=== PATIENT | female | born 1935 | race Caucasian/White ===

== ENCOUNTER 2018-04-20 10:09 | Day surgery (SDC) | payer MEDICARE, OTHER ==
[~2018-04-20] VITALS: Ht 162.6 cm; Wt 58.6 kg
--- NOTE | ~2018-04-20 | OP ---
PATIENT NAME: BARRINGTON GONZALEZ MEDICAL RECORD: [id number] :36 LOCATION:[facility] ADMISSION DATE: SURGEON: MOIZ MAI MD DATE OF OPERATION: 04/20/2018 PREOPERATIVE DIAGNOSIS: Open dislocation, left small finger PIP joint. POSTOPERATIVE DIAGNOSIS: Open dislocation, left small finger PIP joint. PROCEDURES: 1. Closed reduction with percutaneous pinning of the left PIP joint. 2. Irrigation and debridement of the open wound. SURGEON: Moiz Mai MD ANESTHESIA: General. INTRAOPERATIVE COMPLICATIONS: None. SUMMARY OF PATHOLOGIC FINDINGS: The patient did have a substantially decreased capillary refill consistent with the preoperative radiographs. The patient had a dislocation of the PIP joint. I did not see any evidence of fracture on these radiographs or on radiographs taken under fluoroscopy in the OR. INDICATIONS: This is an 82-year-old female, who fell and sustained the injury this morning and presented to the Emergency Department for further intervention. OPERATIVE SUMMARY IN DETAIL: After obtaining the appropriate preoperative orthopedic surgery consent as well as anesthetic consultation, evaluation and clearance, the patient was brought to the operating room and placed on the operating table in supine position. After adequate general TIVA anesthesia was administered, the left upper extremity was prepped and draped in a routine sterile fashion. Prior to any intervention, the finger was blocked with a digital block using 0.5% Marcaine and 0.25% lidocaine. While this was allowed to set up, the finger was reduced. Fluoroscopy was brought in and it showed good reduction, and then 0.062 K-wire was pinned across the PIP and across the DIP joint to maintain stability. The wound was then simply irrigated out. There was not much to debride and it was closed loosely with 4-0 Prolene. Having completed this, sterile dressings were applied. Final radiographs were taken and submitted for radiologist's review. An ulnar gutter splint was applied to the tip of the Jergens ball that was placed on the 0.062 K-wire. The patient was then taken to the recovery room in stable condition. She will be discharged on appropriate pain medications and antibiotics. Please note all final needle and sponge counts were correct. TRANSINT:[id number] Voice Confirmation ID: [id number] DOCUMENT ID: [id number] 06/14/2018 Edited per office, left to right, dmm. OPERATIVE REPORT [id number] BARRINGTON GONZALEZ MD, MOIZ CANDELARIO CC: [id number] DICTATION DATE: 04/20/18 1455 [employer]: 04/20/18 1521 [facility] [place] 04/20/18 [id number] [place] [address]
[~2018-04-20 10:09] MED LIST: ASPIRIN EC81 M1; ASPIRIN EC81 MG PO; CALCIUM 600+D T1 TA1 PO; CALTRATE-600600 MG; FISH OIL 1,0001 CA1 PO; HYDROCHLOROTHIA25 MG PO; LYRICA50 MG PO; OMEGA-3100 MG; PLAVIX75 MG PO; PRAVACHOL40 MG PO; RYBIX ODT50 MG; SYNTHROID88 MCG PO; ULTRAM50 MG PO
[2018-04-20 10:16] VITALS: Ht 162.6 cm; Wt 58.6 kg
[2018-04-20 10:50] LABS: BASOPHILS 0.2 % (0-2); EOSINOPHILS 3.6 % (0-7); HEMATOCRIT 36.7 % (36.0-48.0); HEMOGLOBIN 12.3 g/dL (12-16); IMMATURE GRANULOCYTES 0.2 % (0-5); LYMPHOCYTES 33.1 % (15-50); MCH 31.5 pg (26.0-34.0); MCHC 33.5 g/dL (31.0-37.0); MCV 93.9 fL (80.0-100.0); MONOCYTES 14.6 % (2-11); NEUTROPHILS 48.3 % (40-80); PLATELET COUNT 159 10x3/uL (130-400); RBC 3.91 10x6/uL (4.00-5.40); RDW 13.4 % (11.5-14.5)
[2018-04-20 11:04] LABS: ALBUMIN 3.5 g/dL (3.4-5.0); ALKALINE PHOSPHATASE 61 U/L (46-116); ALT (SGPT) 17 U/L (10-68); BILIRUBIN - TOTAL 0.38 mg/dL (0.2-1.3); CALC OSMOLALITY 263 mosm/kg (275-300); CALCIUM 8.9 mg/dL (8.5-10.1); CARBON DIOXIDE 30.9 mmol/L (21.0-32.0); CHLORIDE - SERUM 97 mmol/L (98-107); CREATININE - SERUM 0.7 mg/dL (0.6-1.3); GLUCOSE 96 mg/dL (74-106); POTASSIUM - SERUM 4.3 mmol/L (3.5-5.1); PROTEIN - SERUM 7.3 g/dL (6.4-8.2); SODIUM 132 mmol/L (136-145); UREA NITROGEN 11 mg/dL (7-18); eGFR NON AFRICAN AMERICAN 85 mL/min (90-120)
[2018-04-20] MEDS ORDERED: KEFLEX500 MG PO (14:51)
[2018-04-20] MEDS ORDERED: MEPERIDINE HCL50 MG PO (14:52)
[2018-04-20 18:45] VITALS: BP 135/90
[2018-06-09] MEDS ORDERED: PROBIOTIC BLEN1 EACH (09:08)
== END 2018-04-20 16:25 | disposition home or self-care (01) ==
LOC: D.ER 10:09 → D.OPS 10:09 → EDSTATUS 12:00 → D.OPS 16:25
PROVIDERS: Family Medicine
DX: S63.296A Dislocation of distal interphalangeal joint of right little finger, initial encounter (principal); S00.81XA Abrasion of other part of head, initial encounter; W18.30XA Fall on same level, unspecified, initial encounter; Y93.89 Activity, other specified; Y92.014 Private driveway to single-family (private) house as the place of occurrence of the external cause

== ENCOUNTER 2018-06-10 06:20 | Day surgery (SDC) | payer MEDICARE, OTHER ==
[2018-06-09 10:08] LABS: BASOPHILS 0.2 % (0-2); EOSINOPHILS 4.3 % (0-7); HEMATOCRIT 36.4 % (36.0-48.0); HEMOGLOBIN 12.3 g/dL (12-16); IMMATURE GRANULOCYTES 0.2 % (0-5); LYMPHOCYTES 32.3 % (15-50); MCH 31.9 pg (26.0-34.0); MCHC 33.8 g/dL (31.0-37.0); MCV 94.5 fL (80.0-100.0); MEAN PLATELET VOLUME 9.7 fL (7.4-10.4); MONOCYTES 14.5 % (2-11); NEUTROPHILS 48.5 % (40-80); PLATELET COUNT 158 10x3/uL (130-400); RBC 3.85 10x6/uL (4.00-5.40); RDW 13.5 % (11.5-14.5); WBC 4.2 10x3/uL (4.8-10.8)
[2018-06-09 10:20] LABS: CALCIUM 8.7 mg/dL (8.5-10.1); CREATININE - SERUM 0.8 mg/dL (0.6-1.3)
[~2018-06-10] VITALS: Ht 160 cm; Wt 58.1 kg
--- NOTE | ~2018-06-10 | OP ---
PATIENT NAME: BARRINGTON GONZALEZ MEDICAL RECORD: [id number] :36 LOCATION:[facility] ADMISSION DATE: SURGEON: MOIZ MAI MD DATE OF OPERATION: 06/10/2018 PREOPERATIVE DIAGNOSIS: Prior fracture dislocation of the left fifth proximal interphalangeal joint with recurrent subluxation and pain. POSTOPERATIVE DIAGNOSIS: Prior fracture dislocation of the left fifth proximal interphalangeal joint with recurrent subluxation and pain. PROCEDURE: Left fifth digit PIP joint fusion. SURGEON: Moiz Mai MD ANESTHESIA: General. INTRAOPERATIVE COMPLICATIONS: None. SUMMARY OF PATHOLOGIC FINDINGS: The patient had a condylar fracture as well as severe damage to both the proximal and distal aspect of the PIP joint. INDICATIONS: An 82-year-old female fell and sustained a complex dislocation. It was reduced operatively and pinned. After the pin was removed, the patient's finger again subluxed into a lateral position and it is very painful for her. After discussing the risks and benefits associated with this, she opted for a PIP joint fusion. OPERATIVE SUMMARY IN DETAIL: After obtaining the appropriate preoperative orthopedic surgery consent as well as anesthetic consultation, evaluation, and clearance, the patient was brought to the operating room and placed on the operating table in supine position. After general laryngeal mask airway was administered, tourniquet was placed on the proximal aspect of the left upper extremity. Left upper extremity was then prepped and draped in routine sterile fashion. The arm was elevated and exsanguinated, tourniquet was inflated to 250 mmHg. A midline incision was made directly across the PIP joint. Careful dissection was carried down to split the dorsal wells and save it. The joint was at this point completely exposed. A very small sagittal saw was then used to cut the appropriate amount of condyle in the proximal aspect of the middle phalanx down to create a perfect angulation that is approximately 15-20 degrees. At this point, the guide pin for the cannulated screw system from [employer] was placed across the PIP joint and the appropriate amount of flexion under fluoroscopic guidance. Having completed this, a 16-mm compression screw was placed across the PIP joint into the middle phalanx. This resulted in excellent compression across the fracture site. Final radiographs were taken and submitted for radiologist review. The wound was then irrigated and closed. The dorsal wells was gently reapproximated with 2-0 Vicryl. This was followed by 4-0 Prolene for reapproximation of the skin. Sterile dressings were applied. The tourniquet was deflated and an ulnar gutter splint was applied to protect the fusion. The patient was then awakened and taken to the recovery room in stable condition. All final needle and sponge counts were correct. OPERATIVE REPORT [id number] BARRINGTON GONZALEZ TRANSINT:[id number] Voice Confirmation ID: [id number] DOCUMENT ID: [id number] SERGEI MARTINEZ, MOIZ CANDELARIO at 0724 CC: [id number] DICTATION DATE: 06/11/18 0845 [employer] APPRAISER: 06/11/18 0927 [facility] 06/10/18 [id number] [place] [address]
[~2018-06-10 06:20] MED LIST changes: +KEFLEX500 MG PO; +MEPERIDINE HCL50 MG PO; +PROBIOTIC BLEN1 EACH
[2018-06-10 07:31] VITALS: BP 141/72; BMI 22.7
[2018-06-10 07:40] VITALS: BP 141/72; Ht 160 cm; Wt 58.1 kg
[2018-06-10] MEDS ORDERED: HYDROCODON-ACE1 EAC7 PO (09:30)
== END 2018-06-10 11:00 | disposition home or self-care (01) ==
LOC: D.OPS 06:20 → D.PAN 08:45 → D.OPS 08:45
PROVIDERS: Anesthesiology
DX: M24.445 Recurrent dislocation, left finger (principal); Z01.812 Encounter for preprocedural laboratory examination

== ENCOUNTER 2021-02-27 16:37 | Emergency (ER) | payer MEDICARE, OTHER ==
[~2021-02-27] VITALS: Ht 160 cm; Wt 59.1 kg
[~2021-02-27 16:37] MED LIST changes: +HYDROCODON-ACE1 EAC7 PO
[2021-02-27 16:41] VITALS: Ht 160 cm; Wt 59.1 kg
[2021-02-27 17:30] LABS: EOSINOPHILS 5.3 % (0-7); HEMATOCRIT 38.1 % (36.0-48.0); HEMOGLOBIN 12.9 g/dL (12-16); LYMPHOCYTES 35.7 % (15-50); MCH 32.4 pg (26.0-34.0); MCHC 33.8 g/dL (31.0-37.0); MCV 96.1 fL (80.0-100.0); MEAN PLATELET VOLUME 8.1 fL (7.4-10.4); MONOCYTES 16.2 % (2-11); NEUTROPHILS 41.8 % (40-80); PLATELET COUNT 172 10x3/uL (130-400); RBC 3.97 10x6/uL (4.00-5.40); RDW 13.4 % (11.5-14.5); WBC 5.1 10x3/uL (4.8-10.8)
[2021-02-27 17:36] LABS: APTT 25.5 SECONDS (22.8-39.4); CALC OSMOLALITY 262 mosm/kg (275-300); CALCIUM 8.6 mg/dL (8.5-10.1); CARBON DIOXIDE 29.2 mmol/L (21.0-32.0); CHLORIDE - SERUM 98 mmol/L (98-107); CREATININE - SERUM 0.7 mg/dL (0.6-1.3); GLUCOSE 110 mg/dL (74-106); INR 1.09 (0.85-1.17); POTASSIUM - SERUM 5.3 mmol/L (3.5-5.1); SODIUM 131 mmol/L (136-145); UREA NITROGEN 10 mg/dL (7-18); eGFR NON AFRICAN AMERICAN 84 mL/min (90-120)
[2021-02-27 17:54] LABS: ALBUMIN 3.4 g/dL (3.4-5.0); ALKALINE PHOSPHATASE 66 U/L (30-120); ALT (SGPT) 14 U/L (10-68); BILIRUBIN - TOTAL 0.33 mg/dL (0.2-1.3); CKMB 0.8 U/L (0.0-3.6); CREATINE KINASE 68 UL (21-215); PROTEIN - SERUM 7.4 g/dL (6.4-8.2); TROPONIN-I < 0.017 ng/mL (0.000-0.060)
[2021-02-27 18:30] VITALS: BP 185/78
== END 2021-02-27 19:15 | disposition home or self-care (01) ==
LOC: D.ER 16:37
PROVIDERS: Family Medicine
DX: R07.9 Chest pain, unspecified (principal); M79.10 Myalgia, unspecified site; K21.9 Gastro-esophageal reflux disease without esophagitis; E03.9 Hypothyroidism, unspecified